=== PATIENT | male | born 1955 | race Caucasian/White ===

== ENCOUNTER 2018-08-24 15:01 | Observation (INO) | payer MEDICARE, BC ==
[~2018-08-24] VITALS: Ht 172.7 cm; Wt 65.0 kg
[~2018-08-24 15:01] MED LIST: ASPI-831 PO; ATOR20TA65 PO; CLON-379 PO; METO-448 PO; NITR0.4T39 SL
--- NOTE | 2018-08-24 16:03 | ERD ---
ER Documentation Chief Complaint Chief Complaint Chest pressure HPI The patient is a 73-year-old male, presenting to the ER because of substernal chest burning/pressure that began about 4 AM today, had similar symptoms 17 years ago prior to having a heart attack, denies chest pain with vomiting/radiation/exertion/diaphoresis, dyspnea, abdominal pain, vomiting, dizzy, diarrhea. He has been taking nitroglycerin with good response. He smokes a pack a day, drinks socially Past medical history: CAD, hypertension Past surgical history: Stent PCI ROS All systems reviewed and are negative except as per history of present illness. Medications Home Meds Active Scripts Clonidine Hcl* (Clonidine Hcl*) 0.1 Mg Tab, 0.1 MG PO Q4H PRN for sbp>160, #30 TAB Prov:REGBIANCARDILMA 01/24/16 Nitroglycerin* (Nitrostat*) 0.4 Mg Tab.subl, 1 TAB SL Q5M PRN for CHEST PAIN, #20 Prov:REGDILMA DEL CID 01/24/16 Metoprolol Tartrate* (Lopressor*) 25 Mg Tab, 25 MG PO Q12 for 30 Days, TAB Prov:REGIDORDILMA 01/24/16 Atorvastatin Calcium (Atorvastatin Calcium) 20 Mg Tablet, 60 MG PO HS for 30 Days, TAB Prov:REGDILMA DEL CID 01/24/16 Aspirin (Aspirin) 81 Mg Chew, 81 MG PO DAILY for 30 Days, TAB Prov:REGBIANCARDILMA 01/24/16 Allergies Allergies: Coded Allergies: No Known Allergy (Unverified , 01/18/14) PMhx/Soc History of Surgery: No Anesthesia Reaction: No Hx Neurological Disorder: No Hx Respiratory Disorders: No Hx Cardiac Disorders: Yes (stent x1) Hx Psychiatric Problems: No Hx Miscellaneous Medical Probl: No Hx Alcohol Use: No (OCASSIONAL ETOH DRINKER) Hx Substance Use: No Hx Tobacco Use: Yes Physical Exam Vitals Vital Signs Date Temp Pulse Resp B/P (MAP) Pulse Ox O2 O2 Flow FiO2 Time Delivery Rate 08/24/18 67 15 174/93 99 Room Air 16:15 (120) 08/24/18 99.0 74 20 165/78 99 15:19 (107) Physical Exam Const: No acute distress. Head: Atraumatic. Eyes: Normal Conjunctiva. ENT: Normal External Ears, Nose and Mouth. Neck: Full range of motion. No meningismus. Resp: Clear to auscultation bilaterally. Cardio: Regular rate and rhythm. Abd: Soft, non distended, normal bowel sounds, non tender. Skin: No petechiae or rashes. Back: No midline or flank tenderness. Ext: No cyanosis, or edema. Neur: Awake and alert. No focal deficit Psych: Normal Mood and Affect. Result Diagram: 08/24/18 1615 08/24/18 1615 Results 24 hrs Laboratory Tests Test 08/24/18 16:15 White Blood Count 7.4 10^3/ul Red Blood Count 4.23 10^6/ul Hemoglobin 12.4 g/dl Hematocrit 37.6 % Mean Corpuscular Volume 88.9 fl Mean Corpuscular Hemoglobin 29.3 pg Mean Corpuscular Hemoglobin Concent 33.0 g/dl Red Cell Distribution Width 13.1 % Platelet Count 188 10^3/UL Mean Platelet Volume 10.6 fl Immature Granulocytes % 0.100 % Neutrophils % 56.0 % Lymphocytes % 35.0 % Monocytes % 7.0 % Eosinophils % 1.6 % Basophils % 0.3 % Nucleated Red Blood Cells % 0.0 /100WBC Immature Granulocytes # 0.010 10^3/ul Neutrophils # 4.1 10^3/ul Lymphocytes # 2.6 10^3/ul Monocytes # 0.5 10^3/ul Eosinophils # 0.1 10^3/ul Basophils # 0.0 10^3/ul Nucleated Red Blood Cells # 0.0 10^3/ul Sodium Level 140 mmol/L Potassium Level 4.3 mmol/L Chloride Level 108 mmol/L Carbon Dioxide Level 24 mmol/L Anion Gap 8 Blood Urea Nitrogen 26 mg/dl Creatinine 1.30 mg/dl Est Glomerular Filtrat Rate mL/min 56 mL/min Glucose Level 79 mg/dl Calcium Level 9.4 mg/dl Troponin I < 0.012 ng/ml Current Medications Medications Dose Sig/Diana Start Time Status Last (Trade) Ordered Route PRN Stop Time Admin Dose Reason Admin Aspirin 324 mg ONCE ONCE 08/24/18 DC 08/24/18 (Aspirin) PO 16:30 08/24/18 16:36 16:31 1 inch ONCE ONCE 08/24/18 DC 08/24/18 Nitroglycerin TD 16:30 08/24/18 16:35 16:31 (Nitroglyceri n 2% Oint) Procedures/MDM [place] [id number] Radiology Main Line: [phone] DIAGNOSTIC IMAGING REPORT Patient: APRIL GALVAN : 1955 Age: 63 Sex: M MR #: [id number] DOS: 08/24/18 1603 Ordering MD: CASSANDRA SARMIENTO MD Location: E/R Room/Bed: PROCEDURE: XR Chest. CLINICAL INDICATION: chest pain TECHNIQUE: Single frontal view of the chest was obtained COMPARISON: CR CHEST 01/23/2016 FINDINGS: The heart and mediastinum are within normal limits. There are multiple left upper lobe nodular opacities measuring up to 1 cm, unchanged since the prior study. The lungs are otherwise clear. There is no pleural effusion or pneumothorax. RPTAT: AA IMPRESSION: Unchanged multiple left upper lobe nodular opacities. Follow-up CT chest is recommended on a routine basis. No focal consolidation. .Jarod Hernandez MD, MD Date Time Electronically viewed and signed by .Jarod Hernandez MD, MD on 08/24/2018 17:03 .S/ CC: CASSANDRA SARMIENTO MD [phone] EKG: Read by emergency physician Rate/Rhythm: Normal Sinus Rhythm 778 beats/min QRS, ST, T-waves: No ST elevation, no T inversion, shortened AL interval, low voltage, lateral ST and T abnormality Impression: Abnormal EKG MEDICAL MAKING DECISION: The patient is a 73-year-old male with multiple cardiac risk factors, presenting with acute chest pain is concerning for acute ACS. He was treated with aspirin 324 mg p.o. and 1 inch of nitroglycerin ointment to the chest wall for acute chest pain with good response. The differential diagnoses considered include but are not limited to acute coronary syndrome, acute myocardial infarction, pericarditis, pulmonary embolism, aortic dissection, pneumonia, pleural effusion, pneumothorax, GERD, chest wall pain. Departure Diagnosis: Primary Impression: Chest pain Additional Impressions: Anemia Renal insufficiency Condition: Stable Comments I discussed the findings with the patient. I discussed the patient with the hosp italist Dr Charles at 5:15 PM. who was made aware of the lab, the treatment, the patient condition. The patient is admitted to Tel [facility] Disclaimer: Inadvertent spelling and grammatical errors are likely due to EHR/dictation software use and do not reflect on the overall quality of patient care. Also, please note that the electronic time recorded on this note does not necessarily reflect the actual time of the patient encounter. CASSANDRA SARMIENTO MD Aug 24, 2018 16:03
[2018-08-24] MEDS ORDERED: ASPIRIN 81 MG TAB PO ONE (16:30)
[2018-08-24] MEDS ORDERED: NITROGLYCERIN 2% 1 GM OINT PKT TD ONE (16:30)
[2018-08-24] MEDS ORDERED: ONDANSETRON 4 MG INJ IV PRN (18:00)
[2018-08-24] MEDS ORDERED: MAGNESIUM HYDROXIDE 30ML CUP PO PRN (18:00)
[2018-08-24] MEDS ORDERED: DOCUSATE SODIUM 100 MG CAP PO PRN (18:00)
[2018-08-24] MEDS ORDERED: NITROGLYCERIN (SL) 0.4 MG TAB SL PRN (18:00)
[2018-08-24] MEDS ORDERED: NACL 0.9% 3 ML SYG IV SCH (18:00)
[2018-08-24] MEDS ORDERED: morphine 2 MG INJ IV PRN (18:00)
[2018-08-24] MEDS ORDERED: HYDROCODONE/APAP (5/325) TAB PO PRN (18:00)
[2018-08-24] MEDS ORDERED: ACETAMINOPHEN 325 MG TAB PO PRN (18:00)
[2018-08-24] MEDS ORDERED: SOD CHLORIDE 0.9% 1,000 ML IV SCH (18:30)
[2018-08-24] MEDS ORDERED: hydrALAzine 20 MG INJ IV PRN (18:30)
[2018-08-24 18:41] VITALS: BP 170/88; PULSE 61; RESP 19
--- NOTE | 2018-08-24 19:02 | HP ---
Date/Time of Note Date/Time of Note DATE: 08/24/18 TIME: 18:47 Assessment/Plan VTE Prophylaxis SCD applied (from Nsg): Yes Pharmacological prophylaxis: LMWH Lines/Catheters IV Catheter Type (from Nrsg): Saline Lock Assessment/Plan Assessment/Plan 1. Acute atypical chest pain, rule out ACS - Cardiology consultation placed for further recommendations - Trop neg x1 and will trend - EKG negative for acute ST changes - nitro helped patient prior to arrival - continue Nitro, O2, morphine PRN - A1c and lipid panel ordered 2. h/o CAD - last PCI was 17 years ago - stress was 5-6 years ago - still smoking and ETOH abuse 3. Tobacco abuse - nicotine patch - cessation counseling provided 4. Lung nodules - stable. will need continued monitoring 5. DANNA - will hydrate and monitor for improvement - avoid nephrotoxic agents 6. Diet - Cardiac 7. Disposition -Admit to Telemetry for ACS rule out Result Diagram: 08/24/18 1615 08/24/18 1615 Results 24hrs Laboratory Tests Test 08/24/18 16:15 White Blood Count 7.4 # Red Blood Count 4.23 L Hemoglobin 12.4 L Hematocrit 37.6 L Mean Corpuscular Volume 88.9 Mean Corpuscular Hemoglobin 29.3 Mean Corpuscular Hemoglobin Concent 33.0 Red Cell Distribution Width 13.1 Platelet Count 188 Mean Platelet Volume 10.6 H Immature Granulocytes % 0.100 Neutrophils % 56.0 Lymphocytes % 35.0 Monocytes % 7.0 Eosinophils % 1.6 Basophils % 0.3 Nucleated Red Blood Cells % 0.0 Immature Granulocytes # 0.010 Neutrophils # 4.1 Lymphocytes # 2.6 Monocytes # 0.5 Eosinophils # 0.1 Basophils # 0.0 Nucleated Red Blood Cells # 0.0 Sodium Level 140 Potassium Level 4.3 Chloride Level 108 Carbon Dioxide Level 24 Anion Gap 8 Blood Urea Nitrogen 26 H Creatinine 1.30 H Est Glomerular Filtrat Rate mL/min 56 L Glucose Level 79 Hemoglobin A1c 5.4 Calcium Level 9.4 Troponin I < 0.012 HPI/ROS Admit Date/Time Admit Date/Time Aug 24, 2018 at 17:14 Hx of Present Illness 63 yo M with PMH CAD s/p PCI 17 years ago, hyperlipidemia, tobacco abuse presented to ED with worsening chest pressure for the past 3 weeks. Patient described the pain as constant burning, nonradiating, denies any associated shortness of breath, nausea, or vomiting. He states he does not remember if the pain is similar to his previous PA but concerned it may be his heart. He follows with a [employer] and last stress test was about 5 years ago. He is still a current everyday smoker and drinks alcohol occasionally. Patient is also concerned about a "bump" on his right calf that started 3 weeks ago as well. He says he was check for a thrombus a few months ago. He states it started as a red bump but has improved in discomfort. Patient denies palpitations, dizziness, LOC, any urinary issues, constipation, diarrhea, or abdominal pain. ROS All 12 systems reviewed and pertinent positives as per HPI. All others negative. Constitutional: No chills, No nausea Eyes: No discharge ENT: No congestion Respiratory: No cough, No shortness of breath, No sputum, No wheezing Cardiovascular: chest pain; No edema, No lightheadedness, No palpitations Gastrointestinal: No pain, No constipation, No diarrhea, No nausea, No vomiting Genitourinary: no complaints Musculoskeletal: no complaints Skin: other (bump on right calf) Neurologic: No confusion, No focal-weakness, No syncope Endocrine: no complaints Lymphatic: no complaints Psychological: nl mood/affect Immunologic: no complaints PMH/Family/Social Past Medical History Medical History: coronary artery disease, high cholesterol Medications Current Medications Aspirin (Aspirin) 81 mg DAILY PO ; Start 08/25/18 at 09:00 Atorvastatin Calcium (Lipitor) 80 mg HS PO ; Start 08/24/18 at 21:00 Clonidine (Catapres) 0.1 mg Q4H PRN PO sbp>160; Start 08/24/18 at 18:00 Metoprolol Tartrate (Lopressor) 25 mg Q12 PO ; Start 08/24/18 at 21:00 Nitroglycerin (Nitroglycerin (Sl Tab) 0.4 Mg) 1 tab Q5M PRN SL CHEST PAIN; Start 08/24/18 at 18:00 IV Flush (NS 3 ml) 3 ml PER PROTOCOL IV ; Start 08/24/18 at 18:00 Ondansetron HCl (Zofran Inj) 4 mg Q6H PRN IV NAUSEA/VOMITING; Start 08/24/18 at 18:00 Acetaminophen (Tylenol Tab) 650 mg Q6H PRN PO .PAIN 1-3 OR TEMP; Start 08/24/18 at 18:00 Acetaminophen/ Hydrocodone Bitart ([place] (5/325)) 1 tab Q6H PRN PO .PAIN 4-6; Start 08/24/18 at 18:00 Morphine Sulfate (morphine) 2 mg Q4H PRN IV .PAIN 7-10; Start 08/24/18 at 18:00 Docusate Sodium (Colace) 100 mg Q12H PRN PO .CONSTIPATION; Start 08/24/18 at 18:00 Magnesium Hydroxide (Milk Of Mag) 30 ml DAILY PRN PO .CONSTIPATION; Start 08/24/18 at 18:00 Pantoprazole (Protonix Tab) 40 mg DAILY@06 PO ; Start 08/25/18 at 06:00 Nicotine (Nicoderm 21 Mg/ 24hr) 1 patch DAILY TRANSDERM ; Start 08/24/18 at 18:00 Sodium Chloride 1,000 ml @ 100 mls/hr Q10H IV ; Start 08/24/18 at 18:30; Stop 08/25/18 at 04:29 Hydralazine HCl (Apresoline) 10 mg Q4H PRN IV SBP >170; Start 08/24/18 at 18:30 Coded Allergies: No Known Allergy (Unverified , 01/18/14) Past Surgical History Past Surgical Hx: angioplasty Family History Significant Family History: no pertinent family hx Social History Alcohol Use: occasionally Smoking Status: Current every day smoker Drug Use: none Exam/Review of Systems Vital Signs Vitals Vital Signs Date Temp Pulse Resp B/P (MAP) Pulse Ox O2 O2 Flow FiO2 Time Delivery Rate 08/24/18 98.1 61 19 170/88 99 18:41 (115) 08/24/18 Room Air 18:06 Exam Exam General: Patient is laying in bed and answers questions appropriately HEENT: NC/AT. EOMI, pupils reactive to light Neck: Supple, nontender, midline chest: nontender Lungs: clear to auscultation bilaterally. no wheezing or rhonchi CVS: S1, S2, regular rate and rhythm, no obvious murmurs Gl: soft, non-tender to palpation, nondistended, bowel sounds heard. no rebound or guarding Neurological: Moves all extremities spontaneously Skin: No new skin lesions Additional Comments Home medications reviewed PROCEDURE: XR Chest. CLINICAL INDICATION: chest pain TECHNIQUE: Single frontal view of the chest was obtained COMPARISON: CR CHEST 01/23/2016 FINDINGS: The heart and mediastinum are within normal limits. There are multiple left upper lobe nodular opacities measuring up to 1 cm, unchanged since the prior study. The lungs are otherwise clear. There is no pleural effusion or pneumothorax. RPTAT: AA IMPRESSION: Unchanged multiple left upper lobe nodular opacities. Follow-up CT chest is recommended on a routine basis. No focal consolidation. .Jarod Hernandez MD, MD Date Time Electronically viewed and signed by .Jarod Hernandez MD, MD on 08/24/2018 17:03 DONTE BASS MD Aug 24, 2018 19:01
--- NOTE | 2018-08-24 19:19 | CONS ---
Assessment/Plan Assessment/Plan Hospital Course (Demo Recall) Chest pain rule out acute coronary syndrome Coronary artery disease History of GA 17 years ago History of PCI Hypertension Dyslipidemia Active smoker History of daily alcohol use Abnormal EKG Abnormal chest x-ray finding Recommendations: Continue with aspirin beta-ann and statin Serial cardiac enzymes will be checked We will give a dose of Lovenox now. Echocardiogram will be checked Lexiscan stress test to be done tomorrow morning if cardiac enzymes are negative and patient remained chest pain-free He has been strongly advised against smoking and drinking Pulmonary workup as per internal medicine Thank you for his referral. We will continue to follow along with you LINDSAY CALLAHAN MD [facility] Consultation Date/Type/Reason Admit Date/Time Aug 24, 2018 at 17:14 Date of Consultation: Aug 24, 2018 Type of Consult Cardiology Reason for Consultation CHEST PAIN Requesting Provider: DONTE BASS MD Date/Time of Note DATE: 08/24/18 TIME: 19:14 Hx of Present Illness Interventional cardiology consultation note Chief complaint: Chest pain Reason for consult: Chest pain History of present illness: Thank you for this referral. History was obtained from the chart from discussion with the staff and physicians as well as the patient himself. This is a pleasant 63-year-old French gentleman with history of coronary artery disease status post GA and PCI 17 years ago, hypertension, dyslipidemia, active smoker who came to emergency room with complaint of few weeks of on and off chest pain. Pain is anterior burning sensation it becomes severe at times. Lasted a few minutes and usually resolve after he takes nitroglycerin. Patient could not explain any exacerbating factors for it. He said that he does not walk much and he has leg pain when he walks. His pain got worse and more severe today and came to emergency room. Currently patient changes chest pain-free and his first troponin is negative Allergies: No known drug allergies Medications were reviewed as per medical reconciliation sheet Family history: He denies any known history of early coronary artery disease Social history: Patient actively smokes. Drinks 2 shots a day Past medical history: Coronary artery disease status post GA status post PCI 70 years ago, hypertension, dyslipidemia, smoker Review of system: Patient denies all others except for above-mentioned Past Medical History Home Meds Active Scripts Clonidine Hcl* (Clonidine Hcl*) 0.1 Mg Tab, 0.1 MG PO Q4H PRN for sbp>160, #30 TAB Prov:JONO DIXONNELL 01/24/16 Nitroglycerin* (Nitrostat*) 0.4 Mg Tab.subl, 1 TAB SL Q5M PRN for CHEST PAIN, #20 Prov:JONO DIXONNELL 01/24/16 Metoprolol Tartrate* (Lopressor*) 25 Mg Tab, 25 MG PO Q12 for 30 Days, TAB Prov:ALEMARIA EUGENIADILMA 01/24/16 Atorvastatin Calcium (Atorvastatin Calcium) 20 Mg Tablet, 60 MG PO HS for 30 Days, TAB Prov:DESTINYDILMA 01/24/16 Aspirin (Aspirin) 81 Mg Chew, 81 MG PO DAILY for 30 Days, TAB Prov:ALEDILMA DEL CID 01/24/16 Medications Current Medications Aspirin (Aspirin) 81 mg DAILY PO ; Start 08/25/18 at 09:00 Atorvastatin Calcium (Lipitor) 80 mg HS PO ; Start 08/24/18 at 21:00 Clonidine (Catapres) 0.1 mg Q4H PRN PO sbp>160; Start 08/24/18 at 18:00 Metoprolol Tartrate (Lopressor) 25 mg Q12 PO ; Start 08/24/18 at 21:00 Nitroglycerin (Nitroglycerin (Sl Tab) 0.4 Mg) 1 tab Q5M PRN SL CHEST PAIN; Start 08/24/18 at 18:00 IV Flush (NS 3 ml) 3 ml PER PROTOCOL IV ; Start 08/24/18 at 18:00 Ondansetron HCl (Zofran Inj) 4 mg Q6H PRN IV NAUSEA/VOMITING; Start 08/24/18 at 18:00 Acetaminophen (Tylenol Tab) 650 mg Q6H PRN PO .PAIN 1-3 OR TEMP; Start 08/24/18 at 18:00 Acetaminophen/ Hydrocodone Bitart ([place] (5/325)) 1 tab Q6H PRN PO .PAIN 4-6; Start 08/24/18 at 18:00 Morphine Sulfate (morphine) 2 mg Q4H PRN IV .PAIN 7-10; Start 08/24/18 at 18:00 Docusate Sodium (Colace) 100 mg Q12H PRN PO .CONSTIPATION; Start 08/24/18 at 18:00 Magnesium Hydroxide (Milk Of Mag) 30 ml DAILY PRN PO .CONSTIPATION; Start at 18:00 Pantoprazole (Protonix Tab) 40 mg DAILY@06 PO ; Start 08/25/18 at 06:00 Nicotine (Nicoderm 21 Mg/ 24hr) 1 patch DAILY TRANSDERM ; Start 08/24/18 at 18:00 Sodium Chloride 1,000 ml @ 100 mls/hr Q10H IV ; Start 08/24/18 at 18:30; Stop 08/25/18 at 04:29 Hydralazine HCl (Apresoline) 10 mg Q4H PRN IV SBP >170; Start 08/24/18 at 18:30 Allergies: Coded Allergies: No Known Allergy (Unverified , 01/18/14) Past Surgical History Past Surgical Hx: angioplasty Social History Alcohol Use: occasionally Smoking Status: Current every day smoker Drug Use: none Exam/Review of Systems Vital Signs Vitals Vital Signs Date Temp Pulse Resp B/P (MAP) Pulse Ox O2 O2 Flow FiO2 Time Delivery Rate 08/24/18 98.1 61 19 170/88 99 18:41 (115) 08/24/18 Room Air 18:06 Exam Exam General: no acute distress HEENT: NC/AT. pupils are equal. round. NECK: NO JVD. no stridor. CV: RRR. systolic murmur; no gallop or rubs. PULM: no wheezing or rhonchi. GI: SOFT, NT, ND, no rebound or guarding Extremity: trace B/L LE edema. no clubbing. neuro: awake and alert, OX3. Psych: calm and pleasant rectal: deferred : normal EKG was personally reviewed showed normal sinus rhythm. T wave abnormality consistent with possible lateral ischemia Chest x-ray shows: Unchanged multiple left upper lobe nodular opacities. Follow-up CT chest is recommended on a routine basis. No focal consolidation. Labs Result Diagram: 08/24/18 1615 08/24/18 1615 Results 24hrs Laboratory Tests Test 08/24/18 16:15 White Blood Count 7.4 # Red Blood Count 4.23 L Hemoglobin 12.4 L Hematocrit 37.6 L Mean Corpuscular Volume 88.9 Mean Corpuscular Hemoglobin 29.3 Mean Corpuscular Hemoglobin Concent 33.0 Red Cell Distribution Width 13.1 Platelet Count 188 Mean Platelet Volume 10.6 H Immature Granulocytes % 0.100 Neutrophils % 56.0 Lymphocytes % 35.0 Monocytes % 7.0 Eosinophils % 1.6 Basophils % 0.3 Nucleated Red Blood Cells % 0.0 Immature Granulocytes # 0.010 Neutrophils # 4.1 Lymphocytes # 2.6 Monocytes # 0.5 Eosinophils # 0.1 Basophils # 0.0 Nucleated Red Blood Cells # 0.0 Sodium Level 140 Potassium Level 4.3 Chloride Level 108 Carbon Dioxide Level 24 Anion Gap 8 Blood Urea Nitrogen 26 H Creatinine 1.30 H Est Glomerular Filtrat Rate mL/min 56 L Glucose Level 79 Hemoglobin A1c 5.4 Calcium Level 9.4 Troponin I < 0.012 Medications Medications Current Medications Aspirin (Aspirin) 81 mg DAILY PO ; Start 08/25/18 at 09:00 Atorvastatin Calcium (Lipitor) 80 mg HS PO ; Start 08/24/18 at 21:00 Clonidine (Catapres) 0.1 mg Q4H PRN PO sbp>160; Start 08/24/18 at 18:00 Metoprolol Tartrate (Lopressor) 25 mg Q12 PO ; Start 08/24/18 at 21:00 Nitroglycerin (Nitroglycerin (Sl Tab) 0.4 Mg) 1 tab Q5M PRN SL CHEST PAIN; Start 08/24/18 at 18:00 IV Flush (NS 3 ml) 3 ml PER PROTOCOL IV ; Start 08/24/18 at 18:00 Ondansetron HCl (Zofran Inj) 4 mg Q6H PRN IV NAUSEA/VOMITING; Start 08/24/18 at 18:00 Acetaminophen (Tylenol Tab) 650 mg Q6H PRN PO .PAIN 1-3 OR TEMP; Start 08/24/18 at 18:00 Acetaminophen/ Hydrocodone Bitart ([place] (5/325)) 1 tab Q6H PRN PO .PAIN 4-6; Start 08/24/18 at 18:00 Morphine Sulfate (morphine) 2 mg Q4H PRN IV .PAIN 7-10; Start 08/24/18 at 18:00 Docusate Sodium (Colace) 100 mg Q12H PRN PO .CONSTIPATION; Start 08/24/18 at 18:00 Magnesium Hydroxide (Milk Of Mag) 30 ml DAILY PRN PO .CONSTIPATION; Start 08/24/18 at 18:00 Pantoprazole (Protonix Tab) 40 mg DAILY@06 PO ; Start 08/25/18 at 06:00 Nicotine (Nicoderm 21 Mg/ 24hr) 1 patch DAILY TRANSDERM ; Start 08/24/18 at 18:00 Sodium Chloride 1,000 ml @ 100 mls/hr Q10H IV ; Start 08/24/18 at 18:30; Stop 08/25/18 at 04:29 Hydralazine HCl (Apresoline) 10 mg Q4H PRN IV SBP >170; Start 08/24/18 at 18:30 LINDSAY CALLAHAN MD Aug 24, 2018 19:19
[2018-08-24] MEDS: ENOXAPARIN 80 MG/0.8 ML SYG SC SCH (20:28)
[2018-08-24 20:30] VITALS: PULSE 68
[2018-08-24] MEDS: METOPROLOL 25 MG TAB PO SCH (20:37)
[2018-08-24] MEDS ORDERED: ATORVASTATIN 80 MG TAB PO SCH (21:00)
[2018-08-24] MEDS: NICOTINE (21 MG/24 HR) PATCH TRANSDERM SCH (22:49)
[2018-08-25] VITALS (7 sets, daily range): BP systolic 162–179; BP diastolic 88–90; PULSE 58–73; RESP 19; Ht 172.7 cm; Wt 65.0 kg
[2018-08-25] MEDS ORDERED: PANTOPRAZOLE (EC) 40 MG TAB PO SCH (06:00)
[2018-08-25] MEDS ORDERED: ASPIRIN 81 MG TAB PO SCH (09:00)
[2018-08-25] MEDS ORDERED: REGADENOSON 0.4 MG/5 ML SYG ONE (10:25)
--- NOTE | 2018-08-25 11:48 | CONS ---
Consult Date/Type/Reason Admit Date/Time Aug 24, 2018 at 17:14 Initial Consult Date 08/24/18 Type of Consultation: cv Requesting Provider: DONTE BASS MD Date/Time of Note DATE: 08/25/18 TIME: 11:46 Subjective Cardiology follow-up progress note Subjective: Case discussed with the staff. Telemetry was reviewed. Patient remains in normal sinus rhythm now. Patient denies any chest pain or pressure to me now. His blood pressure has been elevated though. No bleeding is reported. Objective: General: no acute distress HEENT: NC/AT. pupils are equal. round. NECK: NO JVD. no stridor. CV: RRR. systolic murmur; no gallop or rubs. PULM: no wheezing or rhonchi. GI: SOFT, NT, ND, no rebound or guarding Extremity: trace B/L LE edema. no clubbing. neuro: awake and alert, OX3. Psych: calm and pleasant rectal: deferred : normal Objective Vitals Vital Signs Date Temp Pulse Resp B/P (MAP) Pulse Ox O2 O2 Flow FiO2 Time Delivery Rate 08/25/18 63 08:33 08/25/18 98.7 19 162/90 97 07:33 (114) 08/24/18 Room Air 18:06 Intake and Output 08/24/18 08/24/18 08/25/18 1515:00 23:00 07:00 IntakeIntake Total 650 ml OutputOutput Total 600 ml BalanceBalance 50 ml Results/Medications Result Diagram: 08/25/18 0549 08/25/18 0549 Results 24 hrs Laboratory Tests Test 08/24/18 16:15 08/24/18 21:59 08/25/18 05:49 White Blood Count 7.4 # 7.7 Red Blood Count 4.23 L 3.84 L Hemoglobin 12.4 L 11.4 L Hematocrit 37.6 L 34.4 L Mean Corpuscular Volume 88.9 89.6 Mean Corpuscular Hemoglobin 29.3 29.7 Mean Corpuscular Hemoglobin Concent 33.0 33.1 Red Cell Distribution Width 13.1 13.2 Platelet Count 188 171 Mean Platelet Volume 10.6 H 11.6 H Immature Granulocytes % 0.100 0.400 Neutrophils % 56.0 51.6 Lymphocytes % 35.0 37.6 Monocytes % 7.0 7.9 Eosinophils % 1.6 2.1 Basophils % 0.3 0.4 Nucleated Red Blood Cells % 0.0 0.0 Immature Granulocytes # 0.010 0.030 Neutrophils # 4.1 4.0 Lymphocytes # 2.6 2.9 Monocytes # 0.5 0.6 Eosinophils # 0.1 0.2 Basophils # 0.0 0.0 Nucleated Red Blood Cells # 0.0 0.0 Sodium Level 140 140 Potassium Level 4.3 4.4 Chloride Level 108 109 Carbon Dioxide Level 24 24 Anion Gap 8 7 Blood Urea Nitrogen 26 H 24 H Creatinine 1.30 H 1.33 H Est Glomerular Filtrat Rate mL/min 56 L 54 L Glucose Level 79 89 Hemoglobin A1c 5.4 Calcium Level 9.4 9.0 Troponin I < 0.012 < 0.012 < 0.012 Creatine Kinase 200 151 Creatine Kinase Index 1.2 1.1 Creatinine Kinase MB (Mass) 2.33 1.67 Magnesium Level 2.0 Triglycerides Level 496 H Cholesterol Level 188 LDL Cholesterol, Calculated 57 HDL Cholesterol 32 Cholesterol/HDL Ratio 5.8 Home Meds Active Scripts Clonidine Hcl* (Clonidine Hcl*) 0.1 Mg Tab, 0.1 MG PO Q4H PRN for sbp>160, #30 TAB Prov:DILMA DIXON 01/24/16 Nitroglycerin* (Nitrostat*) 0.4 Mg Tab.subl, 1 TAB SL Q5M PRN for CHEST PAIN, #20 Prov:DILMA DIXON 01/24/16 Metoprolol Tartrate* (Lopressor*) 25 Mg Tab, 25 MG PO Q12 for 30 Days, TAB Prov:DILMA DIXON 01/24/16 Atorvastatin Calcium (Atorvastatin Calcium) 20 Mg Tablet, 60 MG PO HS for 30 Days, TAB Prov:DILMA DIXON 01/24/16 Aspirin (Aspirin) 81 Mg Chew, 81 MG PO DAILY for 30 Days, TAB Prov:DILMA DIXON 01/24/16 Medications Current Medications Aspirin (Aspirin) 81 mg DAILY PO ; Start 08/25/18 at 09:00 Atorvastatin Calcium (Lipitor) 80 mg HS PO Last administered on 08/24/18at 20:36; Admin Dose 80 MG; Start 08/24/18 at 21:00 Clonidine (Catapres) 0.1 mg Q4H PRN PO sbp>160; Start 08/24/18 at 18:00 Metoprolol Tartrate (Lopressor) 25 mg Q12 PO Last administered on 08/24/18at 20:37; Admin Dose 25 MG; Start 08/24/18 at 21:00 Nitroglycerin (Nitroglycerin (Sl Tab) 0.4 Mg) 1 tab Q5M PRN SL CHEST PAIN; Start 08/24/18 at 18:00 IV Flush (NS 3 ml) 3 ml PER PROTOCOL IV ; Start 08/24/18 at 18:00 Ondansetron HCl (Zofran Inj) 4 mg Q6H PRN IV NAUSEA/VOMITING; Start 08/24/18 at 18:00 Acetaminophen (Tylenol Tab) 650 mg Q6H PRN PO .PAIN 1-3 OR TEMP Last administered on 08/25/18at 01:13; Admin Dose 650 MG; Start 08/24/18 at 18:00 Acetaminophen/ Hydrocodone Bitart ([place] (5/325)) 1 tab Q6H PRN PO .PAIN 4-6; Start 08/24/18 at 18:00 Morphine Sulfate (morphine) 2 mg Q4H PRN IV .PAIN 7-10; Start 08/24/18 at 18:00 Docusate Sodium (Colace) 100 mg Q12H PRN PO .CONSTIPATION; Start 08/24/18 at 18:00 Magnesium Hydroxide (Milk Of Mag) 30 ml DAILY PRN PO .CONSTIPATION; Start 08/24/18 at 18:00 Pantoprazole (Protonix Tab) 40 mg DAILY@06 PO Last administered on 08/25/18at 06:16; Admin Dose 40 MG; Start 08/25/18 at 06:00 Nicotine (Nicoderm 21 Mg/ 24hr) 1 patch DAILY TRANSDERM Last administered on 08/24/18at 22:49; Admin Dose 1 PATCH; Start 08/24/18 at 18:00 Hydralazine HCl (Apresoline) 10 mg Q4H PRN IV SBP >170; Start 08/24/18 at 18:30 Enoxaparin Sodium (Lovenox) 65 mg Q12 SC Last administered on 08/24/18at 20:28; Admin Dose 65 MG; Start 08/24/18 at 20:00 Influenza Virus Vaccine Quadrival (Fluzone) 0.5 ml ONCE ONCE IM* ; Start 08/26/18 at 10:00; Stop 08/26/18 at 10:01 Assessment/Plan Hospital Course (Demo Recall) Chest pain rule out acute coronary syndrome Coronary artery disease History of [place] 17 years ago History of PCI Hypertension Dyslipidemia Active smoker History of daily alcohol use Abnormal EKG Abnormal chest x-ray finding Recommendations: Continue with aspirin beta-ann and statin Serial cardiac enzymes been negative Echocardiogram will be checked Lexiscan stress test done today. Awaiting results He has been strongly advised against smoking and drinking Pulmonary workup as per internal medicine I will add losartan to his regimen for his blood pressure control Thank you for his referral. We will continue to follow along with you LINDSAY CALLAHAN MD [facility] LINDSAY CALLAHAN MD Aug 25, 2018 11:48
[2018-08-25] MEDS ORDERED: LOSARTAN 50 MG TAB PO SCH (12:00)
--- NOTE | 2018-08-25 12:26 | RADRPT ---
Echocardiogram Report [id number] : 1955 (63y 6m)Study Date: 08/25/2018 11:02:03 AM Gender: Andrewcession #: [id number] Tech: UT Location: Ref.Physician: DONTE BASS Height(Cm): BSA: Weight(Kg): Quality: AdequateAccount #: Procedures: Echocardiographic Report: Transthoracic echocardiogram with complete 2D, M-Mode, and doppler examination. Indications: Chest Pain, and Coronary Artery Disease. Measurements: 2D/M Mode Doppler Measurement Value Normal Range Measurement Value Normal Range LVIDd 2D 4.1 [ 4.2 - 5.8 ] cm AV Peak Trevor 1.1 [ 100.0 - 170.0 ] cm/sec LVIDs 2D 2.7 [ 2.5 - 4.0 ] cm AV Peak PG 5.0 [ 2.0 - 9.0 ] mmHg LVPWd 2D 1.0 [ 0.6 - 1.0 ] cm LVOT Peak Trevor 0.8 [ 70.0 - 110.0 ] cm/sec IVSd 2D 0.9 [ 0.6 - 1.0 ] cm LVOT Peak PG 3.0 [ 2.0 - 6.0 ] mmHg AoR Diam 2D 2.7 [ 2.6 - 3.4 ] cm MV E Peak Trevor 0.6 [ 60.0 - 130.0 ] cm/sec EDV 2D 73.8 [ 62.0 - 150.0 ] ml MV A Peak Trevor 0.8 [ 100.0 - 120.0 ] cm/sec ESV 2D 27.8 [ 21.0 - 61.0 ] ml MV E/A 0.7 [ 0.8 - 1.5 ] ratio EF 2D 62.3 [ 52.0 - 72.0 ] percent MV Decel Time 232 [ 104 - 258 ] msec LA Dimen 2D 3.0 [ 3.0 - 4.0 ] cm Lat E` Trevor 0.1 [ 10.0 - 15.0 ] cm/sec Lateral E/E` 5.4 [ 1.0 - 2.0 ] ratio MV E/A 0.7 [ 0.8 - 1.5 ] ratio TR Peak Trevor 2.9 [ 100.0 - 280.0 ] cm/sec TR Peak PG 34.0 mmHg RVSP 44.0 [ 10.0 - 36.0 ] mmHg RA Pressure 10.0 mmHg Findings: Left Ventricle: Normal left ventricular systolic function. Normal left ventricular cavity size. Normal left ventricular wall thickness. Ejection fraction is visually estimated at 50 %. Tissue Doppler/Mitral Doppler indices are consistent with impaired relaxation (Stage I diastolic dysfunction). These segments of the LV are hypokinetic inferior base segment and inferior mid segment. Right Ventricle: Normal right ventricular size. Normal right ventricular systolic function. Left Atrium: The left atrium is normal in size. Right Atrium: The right atrium is normal in size. Mitral Valve: Normal appearance and function of the mitral valve with trace physiologic regurgitation. Aortic Valve: Normal appearance of the aortic valve. No significant aortic stenosis or insufficiency. Tricuspid Valve: Normal appearance of the tricuspid valve. Estimated peak PA systolic pressure 44 mmHg. There is mild tricuspid regurgitation. Pulmonic Valve: Normal pulmonic valve appearance. Pericardium: Trivial pericardial effusion. Aorta: Normal aortic root. IVC: Normal size and normal respiratory collapse consistent with normal right atrial pressure. Conclusions: Normal left ventricular systolic function. Normal left ventricular cavity size. Normal left ventricular wall thickness. Ejection fraction is visually estimated at 50 %. Tissue Doppler/Mitral Doppler indices are consistent with impaired relaxation (Stage I diastolic dysfunction). These segments of the LV are hypokinetic inferior base segment and inferior mid segment. Normal appearance of the aortic valve. No significant aortic stenosis or insufficiency. Normal appearance of the tricuspid valve. Estimated peak PA systolic pressure 44 mmHg. There is mild tricuspid regurgitation. Normal appearance and function of the mitral valve with trace physiologic regurgitation. Electronically Signed By: Hermilo Powell 2018-08-25 12:26:43 [facility]
[2018-08-25] MEDS: NICOTINE (21 MG/24 HR) PATCH TRANSDERM SCH (12:48)
[2018-08-25] MEDS: METOPROLOL 25 MG TAB PO SCH (12:49)
[2018-08-25] MEDS: ENOXAPARIN 80 MG/0.8 ML SYG SC SCH (12:52)
--- NOTE | 2018-08-25 13:18 | PDOCDIS ---
Discharge Instructions CONDITION [id number] Patient Condition: [id number] Stable HOME CARE INSTRUCTIONS: [id number] Diet Instructions: Track2u Low Fat /Cholesterol FOLLOW UP/APPOINTMENTS Follow-up Plan Follow-up with Dr. Powell in his clinic in 1-2 weeks [address] [facility] [address] [place] [id number] Office Follow up with primary care physician in 1 week-you are started on a new medication called losartan and you need to check your creatinine level in 1 week. NIMA BERG NP Aug 25, 2018 13:18
[2018-08-25] MEDS ORDERED: OMEG1CAP17 PO (13:20)
[2018-08-25] MEDS ORDERED: ATOR-2 PO (13:20)
[2018-08-25] MEDS ORDERED: LOSA50TA2 PO (13:20)
--- NOTE | 2018-08-25 13:31 | DS ---
Date/Time of Note Date/Time of Note DATE: 08/25/18 TIME: 13:29 Discharge Summary Admission/Discharge Info Admit Date/Time Aug 24, 2018 at 17:14 Discharge Date/Time Discharge Diagnosis Nonobstructive coronary artery disease Hypertension Dyslipidemia Tobacco/alcohol use Patient Condition: Stable Consults , cardiology Procedures 10/2018. Nuclear medicine myocardial perfusion scan: IMPRESSION: 1. 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 2. There is no evidence for reversible ischemia. 3. Lateral wall hypokinesis with low normal ejection fraction of 53%. Hospital Course 63-year-old male with a history of CAD/PCI, hypertension, dyslipidemia, tobacco use, alcohol use, admitted with chest pain. Patient underwent Lexiscan stress test, showed not significant old infarct along the lateral/inferior lateral wall. There was no evidence of reversible ischemia. Ejection fraction 53%. Patient was continued on medical management. He was continued on aspirin, beta-blockers and statin. Patient had mild acute kidney injury. Cardiology recommended starting low-dose losartan. Patient needs renal function to be monitored in a week. Patient also had moderate triglyceride anemia for which fish oil supplementation along with statin regimen was recommended. As per cardiology, no further inpatient cardiac workup indicated and patient is stable for outpatient follow-up. Patient did not have any further chest pain, troponin negative, EKG with no acute ST or T wave changes. Patient is very eager to be discharged home as well. Patient was counseled on smoking cessation and alcohol cessation. Approximately 60 minutes was spent on coordinating the discharge on this patient. Patient was seen in collaboration with [facility] Active Scripts [place]-3 Fatty Acids/Fish Oil (Fish Oil 1,000 mg Softgel) 1 Each Capsule, 1 EACH PO BID, #60 CAP Prov:BERG,NIMA V. DECK SCALER 08/25/18 Losartan Potassium* (Cozaar*) 50 Mg Tablet, 50 MG PO DAILY, #30 TAB Prov:BERG,NIMA V. DECK SCALER 08/25/18 Atorvastatin* (Atorvastatin*) 80 Mg Tablet, 80 MG PO HS, #30 TAB Prov:BERG,NIMA V. DECK SCALER 08/25/18 Clonidine Hcl* (Clonidine Hcl*) 0.1 Mg Tab, 0.1 MG PO Q4H PRN for sbp>160, #30 TAB Prov:DILMA DIXON 01/24/16 Nitroglycerin* (Nitrostat*) 0.4 Mg Tab.subl, 1 TAB SL Q5M PRN for CHEST PAIN, #20 Prov:DILMA DIXON 01/24/16 Metoprolol Tartrate* (Lopressor*) 25 Mg Tab, 25 MG PO Q12 for 30 Days, TAB Prov:DILMA DIXON 01/24/16 Atorvastatin Calcium (Atorvastatin Calcium) 20 Mg Tablet, 60 MG PO HS for 30 Days, TAB Prov:DILMA DIXON 01/24/16 Aspirin (Aspirin) 81 Mg Chew, 81 MG PO DAILY for 30 Days, TAB Prov:REGIDODILMA Zhang 01/24/16 Follow-up Plan Follow-up with Dr. Powell in his clinic in 1-2 weeks. [id number] [address] [place] [address] Office Follow up with primary care physician in 1 week Primary Care Provider Not On Staff Doctor Pending Labs Laboratory Tests Test 08/24/18 16:15 08/24/18 21:59 08/25/18 05:49 White Blood Count 7.4 7.7 10^3/ul (4.8-10.8) 10^3/ul (4.8-10.8) Red Blood Count 4.23 3.84 10^6/ul (4.70-6.10) 10^6/ul (4.70-6.10 ) Hemoglobin 12.4 11.4 g/dl (14.0-18.0) g/dl (14.0-18.0) Hematocrit 37.6 % (42.0-52.0) 34.4 % (42.0-52.0) Mean Corpuscular 88.9 89.6 Volume fl (82.0-101.0) fl (82.0-101.0) Mean Corpuscular 29.3 pg (29.0-33.0) 29.7 Hemoglobin pg (29.0-33.0) Mean Corpuscular 33.0 33.1 Hemoglobin Concent g/dl (32.0-37.0) g/dl (32.0-37.0) Red Cell 13.1 % (11.5-14.5) 13.2 % (11.5-14.5) Distribution Width Platelet Count 188 171 10^3/UL (140-415) 10^3/UL (140-415) Mean Platelet 10.6 fl (7.4-10.4) 11.6 fl (7.4-10.4) Volume Immature 0.100 0.400 Granulocytes % % (0.001-0.429) % (0.001-0.429) Neutrophils % 56.0 % (39.0-77.0) 51.6 % (39.0-77.0) Lymphocytes % 35.0 % (15.0-51.0) 37.6 % (15.0-51.0) Monocytes % 7.0 % (0.0-11.0) 7.9 % (0.0-11.0) Eosinophils % 1.6 % (0.0-7.0) 2.1 % (0.0-7.0) Basophils % 0.3 % (0.0-2.0) 0.4 % (0.0-2.0) Nucleated Red Blood 0.0 0.0 Cells % /100WBC (0.0-0.0) /100WBC (0.0-0.0) Immature 0.010 0.030 Granulocytes # 10^3/ul (0.0-0.031) 10^3/ul (0.0-0.031 ) Neutrophils # 4.1 4.0 10^3/ul (1.6-7.5) 10^3/ul (1.6-7.5) Lymphocytes # 2.6 2.9 10^3/ul (0.8-2.9) 10^3/ul (0.8-2.9) Monocytes # 0.5 0.6 10^3/ul (0.3-0.9) 10^3/ul (0.3-0.9) Eosinophils # 0.1 0.2 10^3/ul (0.0-0.5) 10^3/ul (0.0-0.5) Basophils # 0.0 0.0 10^3/ul (0.0-0.1) 10^3/ul (0.0-0.1) Nucleated Red Blood 0.0 0.0 Cells # 10^3/ul (0.0-0.0) 10^3/ul (0.0-0.0) Sodium Level 140 140 mmol/L (135-144) mmol/L (135-144) Potassium Level 4.3 4.4 mmol/L (3.5-5.1) mmol/L (3.5-5.1) Chloride Level 108 mmol/L (97-110) 109 mmol/L (97-110) Carbon Dioxide 24 mmol/L (21-31) 24 mmol/L (21-31) Level Anion Gap 8 (5-13) 7 (5-13) Blood Urea 26 mg/dl (7-20) 24 mg/dl (7-20) Nitrogen Creatinine 1.30 1.33 mg/dl (0.61-1.24) mg/dl (0.61-1.24) Est Glomerular 56 mL/min (>60) 54 mL/min (>60) Filtrat Rate mL/min Glucose Level 79 mg/dl (70-220) 89 mg/dl (70-220) Hemoglobin A1c 5.4 % (0-5.9) Calcium Level 9.4 9.0 mg/dl (8.4-10.2) mg/dl (8.4-10.2) Troponin I < 0.012 < 0.012 < 0.012 ng/ml (0.000-0.120) ng/ml (0.000-0.120 ng/ml (0.000-0.120 ) ) Creatine Kinase 200 IU/L (23-200) 151 IU/L (23-200) Creatine Kinase 1.2 1.1 Index Creatinine Kinase 2.33 1.67 MB (Mass) ng/ml (0.0-2.4) ng/ml (0.0-2.4) Magnesium Level 2.0 mg/dl (1.7-2.5) Triglycerides 496 mg/dl (0-149) Level Cholesterol Level 188 mg/dl (100-200) LDL Cholesterol, 57 mg/dl Calculated HDL Cholesterol 32 mg/dl (30-78) Cholesterol/HDL 5.8 RATIO Ratio NIMA BERG NP Aug 25, 2018 13:31
[2018-08-26] MEDS ORDERED: INFLUENZA VIRUS VACCINE 0.5 ML (DISPENSING) IM* ONE (10:00)
== END 2018-08-25 17:05 | disposition home or self-care (01) ==
LOC: E/R 15:01 → TEL 17:14
PROVIDERS: ADMIT Internal Medicine; ATTEND Internal Medicine
DX: I25.10 Atherosclerotic heart disease of native coronary artery without angina pectoris (principal); Z95.5 Presence of coronary angioplasty implant and graft; I10 Essential (primary) hypertension; E78.5 Hyperlipidemia, unspecified; Z72.0 Tobacco use; R91.8 Other nonspecific abnormal finding of lung field; N17.9 Acute kidney failure, unspecified; Z79.82 Long term (current) use of aspirin
CPT/HCPCS: 36415; 71045; 71250; 78452; 80048; 80061; 82550; 82553; 83036; 83735; 84484; 85025; 93005; 93017; 93306; 93971; 99285; A9500; A9505; G0378; J1650; J2785; J7030

== ENCOUNTER 2018-09-13 16:39 | Emergency (ER) | payer MEDICARE, BC ==
[~2018-09-13] VITALS: Wt 78.0 kg
[~2018-09-13 16:39] MED LIST changes: +ATOR-2 PO; -ATOR20TA65 PO; +LOSA50TA2 PO; +OMEG1CAP17 PO
[2018-09-13 16:43] VITALS: BP 160/82; PULSE 70; RESP 18
[2018-09-13] MEDS ORDERED: DIPHTH/TET/ACEL PERTUSS (ADULT) 0.5 ML VIAL IM* ONE (17:30)
[2018-09-13] MEDS ORDERED: HYDROCODONE/APAP (5/325) TAB PO ONE (17:30)
[2018-09-13] MEDS ORDERED: CEPH-443 PO (18:37)
[2018-09-13] MEDS ORDERED: HYDR-4011 PO (18:38)
--- NOTE | 2018-09-13 18:47 | ERD ---
ER Documentation Chief Complaint Chief Complaint left ring finger laceration about 1500 today. bleeding controlled. HPI 63-year-old male patient who is right-handed previous history of a [place], 15 years ago presents to ED complaining of a left-handed laceration as he was trying to cut bread earlier today. States that he accidentally cut the fingernail off of his left ring finger. Reports that the bleeding was controlled. States that he is not up-to-date with his tetanus vaccine. Patient reports that he has been taking metoprolol, aspirin. Denies any nausea, vomiting, diarrhea, neck stiffness, loss sensation, loss of range of motion, increased redness or swelling. ROS All systems reviewed and are negative except as per history of present illness. Medications Home Meds Active Scripts Hydrocodone/Acetaminophen ([place] 5-325 Tablet) 1 Each Tablet, 1 TAB PO QHS PRN for PAIN, #5 TAB Prov:UMAIR ESPINOSA PA-C 09/13/18 Cephalexin* (Keflex*) 500 Mg Capsule, 500 MG PO QID for 7 Days, CAP Prov:UMAIR ESPINOSA PA-C 09/13/18 [place]-3 Fatty Acids/Fish Oil (Fish Oil 1,000 mg Softgel) 1 Each Capsule, 1 EACH PO BID, #60 CAP Prov:BERG,NIMA V. PSYCHIATRIC SECRETARY 08/25/18 Losartan Potassium* (Cozaar*) 50 Mg Tablet, 50 MG PO DAILY, #30 TAB Prov:BERG,NIMA V. PSYCHIATRIC SECRETARY 08/25/18 Atorvastatin* (Atorvastatin*) 80 Mg Tablet, 80 MG PO HS, #30 TAB Prov:BERGNIMA V. PSYCHIATRIC SECRETARY 08/25/18 Clonidine Hcl* (Clonidine Hcl*) 0.1 Mg Tab, 0.1 MG PO Q4H PRN for sbp>160, #30 TAB Prov:REGDILMA DEL CID 01/24/16 Nitroglycerin* (Nitrostat*) 0.4 Mg Tab.subl, 1 TAB SL Q5M PRN for CHEST PAIN, #20 Prov:REGIDODILMA Zhang 01/24/16 Metoprolol Tartrate* (Lopressor*) 25 Mg Tab, 25 MG PO Q12 for 30 Days, TAB Prov:REGDILMA DEL CID 01/24/16 Aspirin (Aspirin) 81 Mg Chew, 81 MG PO DAILY for 30 Days, TAB Prov:REGIDOR,DILMA 01/24/16 Allergies Allergies: Coded Allergies: No Known Allergy (Unverified , 01/18/14) PMhx/Soc History of Surgery: Yes (cardiac stent x 17 years ago ) Anesthesia Reaction: No Hx Neurological Disorder: No Hx Respiratory Disorders: No Hx Cardiac Disorders: Yes (cardiac stent x 1, HTN, CAD) Hx Psychiatric Problems: No Hx Miscellaneous Medical Probl: No Hx Alcohol Use: No (two shots/day) Hx Substance Use: No Hx Tobacco Use: Yes (50 yr smoker, E cig user now) Smoking Status: Former smoker FmHx Family History: No diabetes, No coronary disease Physical Exam Vitals Vital Signs Date Temp Pulse Resp B/P (MAP) Pulse Ox O2 O2 Flow FiO2 Time Delivery Rate 09/13/18 98.0 70 18 160/82 99 16:43 (108) Physical Exam Const: [id number], well-nourished. In no acute distress. Head: Atraumatic, normocephalic Eyes: Normal Conjunctiva without injection. No purulent discharge. PERRL. EOMI ENT: Normal external ear. Ear canal without erythema. Tympanic membrane pearly hinson without effusion or bulging. Nasal canal clear with normal turbinates. Moist oropharynx without tonsillar exudates. Non-erythematous pharynx. Uvula midline. No drooling. No trismus. Neck: Full range of motion. No meningismus. No cervical lymphadenopathy. Resp: Clear to auscultation bilaterally. No wheezing, rhonchi, rales, or crackles. No accessory muscle use. No retractions. Cardio: Regular rate and rhythm. No murmurs, rubs or gallops. Abd: Soft, non tender, non distended. Normal bowel sounds. No palpable masses. No rebound tenderness. No guarding. Skin: No petechiae or rashes Back: No midline tenderness. No CVA tenderness. Ext: No cyanosis, or edema. Nail avulsion of left 4th finger. Full range of motion of DIP, PIP, MCP joints bilaterally. Neur: Awake and alert. Psych: Normal Mood and Affect Results 24 hrs Current Medications Medications Dose Sig/Diana Start Time Status Last (Trade) Ordered Route PRN Stop Time Admin Dose Reason Admin Diphtheria/ 0.5 ml ONCE ONCE 09/13/18 DC 09/13/18 Tetanus/Acell IM* 17:30 17:37 Pertussis 09/13/18 17:31 (Adacel) 1 tab ONCE ONCE 09/13/18 DC 09/13/18 Acetaminophen PO 17:30 17:37 / 09/13/18 17:31 Hydrocodone Bitart ([place] (5/325)) Procedures/MDM 63-year-old male patient comes to the ED complaining of a left finger laceration. Patient is afebrile and nontoxic-appearing. Tdap updated. Patient gave consent to perform laceration repair. Laceration Repair by me: Anesthesia: None Location: Left 4th Finger Tendon/Joint/Nerves: No injury Foreign body: None detected after copious irrigation and exploration Technique: Surgicel, Pressure Dressing and Elevation stopped bleeding Complexity: No subcutaneous sutures/mucosal repair/edge excision Post Closure Length: Complete Nail Avulsion Patient's bleeding was easily controlled in the department and there is no indication of anemia. Patient is neurovascularly intact. No evidence of compartment syndrome, neurologic injury, vascular injury, open joint, tendon laceration, or foreign body. Patient is appropriate for outpatient follow up. 48 hour wound check. Keflex was prescribed to patient for infection prevention. Instructed patient to return to the ED sooner for any worsening symptoms. Follow up with primary care physician in 1-2 days. Patient's questions were answered. Patient understood and agreed with discharge plan. Departure Diagnosis: Primary Impression: Avulsion of fingernail of left hand Condition: Stable Patient Instructions: Nail Avulsion, Complete Referrals: [facility] YOU HAVE RECEIVED A MEDICAL SCREENING EXAM AND THE RESULTS INDICATE THAT YOU DO NOT HAVE A CONDITION THAT REQUIRES URGENT TREATMENT IN THE EMERGENCY DEPARTMENT. FURTHER EVALUATION AND TREATMENT OF YOUR CONDITION CAN WAIT UNTIL YOU ARE SEEN IN YOUR DOCTORS OFFICE WITHIN THE NEXT 1-2 DAYS. IT IS YOUR RESPONSIBILITY TO MAKE AN APPOINTMENT FOR FOLOW-UP CARE. IF YOU HAVE A PRIMARY DOCTOR --you should call your primary doctor and schedule an appointment IF YOU DO NOT HAVE A PRIMARY DOCTOR YOU CAN CALL OUR PHYSICIAN REFERRAL HOTLINE AT IF YOU CAN NOT AFFORD TO SEE A PHYSICIAN YOU CAN CHOSE FROM THE FOLLOWING [facility] [address] [facility]. [facility] [place] [facility] [address] [facility] [facility] [address] [facility] [address] [facility]. [facility] [address] [facility]. [facility]. [address] [facility]. [facility] YOU HAVE RECEIVED A MEDICAL SCREENING EXAM AND THE RESULTS INDICATE THAT YOU DO NOT HAVE A CONDITION THAT REQUIRES URGENT TREATMENT IN THE EMERGENCY DEPARTMENT. FURTHER EVALUATION AND TREATMENT OF YOUR CONDITION CAN WAIT UNTIL YOU ARE SEEN IN YOUR DOCTORS OFFICE WITHIN THE NEXT 1-2 DAYS. IT IS YOUR RESPONSIBILITY TO MAKE AN APPOINTMENT FOR FOLOW-UP CARE. IF YOU HAVE A PRIMARY DOCTOR --you should call your primary doctor and schedule and appointment IF YOU DO NOT HAVE A PRIMARY DOCTOR YOU CAN CALL OUR PHYSICIAN REFERRAL HOTLINE AT . IF YOU CAN NOT AFFORD TO SEE A PHYSICIAN YOU CAN CHOSE FROM THE FOLLOWING [facility] INSTITUTIONS: [facility] [address] [place] [address] [facility] [address] [place], [place] [address] [place] [address] [address] [place] [address] [facility] URGENT CARE/SPECIALTIES [facility] Hours: 8:00 am - 5:00 pm Additional Instructions: Call your primary care doctor TOMORROW for an appointment during the next 2-3 days.See the doctor sooner or return here if your condition worsens before your appointment time. Follow up in 2 days in your clinic for wound check. UMAIR ESPINOSA PA-C Sep 13, 2018 18:47
== END 2018-09-13 19:15 | disposition home or self-care (01) ==
LOC: FTE 16:39
DX: S61.315A Laceration without foreign body of left ring finger with damage to nail, initial encounter (principal); I10 Essential (primary) hypertension; I25.10 Atherosclerotic heart disease of native coronary artery without angina pectoris; I25.2 Old myocardial infarction; W26.8XXA Contact with other sharp object(s), not elsewhere classified, initial encounter; Y92.9 Unspecified place or not applicable; Z23 Encounter for immunization; Z79.82 Long term (current) use of aspirin; Z98.61 Coronary angioplasty status; Z87.891 Personal history of nicotine dependence
CPT/HCPCS: 90471; 90715

== ENCOUNTER 2018-09-18 09:19 | Emergency (ER) | payer MEDICARE, BC ==
[~2018-09-18] VITALS: Wt 65.9 kg
[~2018-09-18 09:19] MED LIST changes: +CEPH-443 PO; +HYDR-4011 PO
[2018-09-18 09:21] VITALS: BP 161/102; PULSE 80; RESP 20; Wt 65.9 kg
[2018-09-18] MEDS ORDERED: MUPI22OI2 TOP (13:19)
--- NOTE | 2018-09-18 13:21 | ERD ---
ER Documentation Chief Complaint Chief Complaint lac to finger on Friday HPI 63-year-old male presents for follow-up for wound check. Patient here 5 days ago for a left fourth finger avulsion injury. Surgicel was applied and bleeding was controlled and patient was given instructions for wound care. Patient state s that he thinks the wound is healing well. Denies any pain currently. Denies fevers or chills. Patient was given antibiotics which he is currently taking. No other complaints. ROS All systems reviewed and are negative except as per history of present illness. Medications Home Meds Active Scripts Mupirocin* (Bactroban*) 2% -22 Gram Oint...g., 1 APPLIC TOP BID for finger avulsion injury for 5 Days, #1 TUB SITE OF APPLICATION: Prov:CASSANDRA BUTCHER DO 09/18/18 Hydrocodone/Acetaminophen ([place] 5-325 Tablet) 1 Each Tablet, 1 TAB PO QHS PRN for PAIN, #5 TAB Prov:UMAIR ESPINOSA PA-C 09/13/18 Cephalexin* (Keflex*) 500 Mg Capsule, 500 MG PO QID for 7 Days, CAP Prov:UMAIR ESPINOSA PA-C 09/13/18 [place]-3 Fatty Acids/Fish Oil (Fish Oil 1,000 mg Softgel) 1 Each Capsule, 1 EACH PO BID, #60 CAP Prov:BERGSEANA VAsha [employer] 08/25/18 Losartan Potassium* (Cozaar*) 50 Mg Tablet, 50 MG PO DAILY, #30 TAB Prov:BERGDELMYNIMA VAsha [employer] 08/25/18 Atorvastatin* (Atorvastatin*) 80 Mg Tablet, 80 MG PO HS, #30 TAB Prov:BERGSEANA Gallo [employer] 08/25/18 Clonidine Hcl* (Clonidine Hcl*) 0.1 Mg Tab, 0.1 MG PO Q4H PRN for sbp>160, #30 TAB Prov:REGIDORDILMA 01/24/16 Nitroglycerin* (Nitrostat*) 0.4 Mg Tab.subl, 1 TAB SL Q5M PRN for CHEST PAIN, #20 Prov:REGDILMA DEL CID 01/24/16 Metoprolol Tartrate* (Lopressor*) 25 Mg Tab, 25 MG PO Q12 for 30 Days, TAB Prov:REGDILMA DEL CID 01/24/16 Aspirin (Aspirin) 81 Mg Chew, 81 MG PO DAILY for 30 Days, TAB Prov:DILMA DIXON 01/24/16 Allergies Allergies: Coded Allergies: No Known Allergy (Unverified , 01/18/14) PMhx/Soc History of Surgery: Yes (cardiac stent x 17 years ago ) Anesthesia Reaction: No Hx Neurological Disorder: No Hx Respiratory Disorders: No Hx Cardiac Disorders: Yes (cardiac stent x 1, HTN, CAD) Hx Psychiatric Problems: No Hx Miscellaneous Medical Probl: No Hx Alcohol Use: No (two shots/day) Hx Substance Use: No Hx Tobacco Use: Yes (50 yr smoker, E cig user now) Physical Exam Vitals Vital Signs Date Temp Pulse Resp B/P (MAP) Pulse Ox O2 O2 Flow FiO2 Time Delivery Rate 09/18/18 97.6 80 20 161/102 99 09:21 (121) Physical Exam Const: No acute distress Resp: Clear to auscultation bilaterally Cardio: Regular rate and rhythm, no murmurs, cap refills less than 2 seconds in all fingers of the left hand Abd: Soft, non tender, non distended. Normal bowel sounds Skin: No petechiae or rashes Back: No midline or flank tenderness Ext: No cyanosis, or edema, patient is able to move his left fourth finger normally, the wound over the left fourth digit fingertip appears to be healing well, no erythema noted. No discharge or bleeding. Neur: Awake and alert, all fingers of left hand sensation intact Psych: Normal Mood and Affect Procedures/MDM Medical Decision Making: Patient presents for wound check of a left hand fourth digit fingertip avulsion injury. The wound appears to be healing well. Patient is neurovascularly intact. No signs of infection. Patient advised to continue with antibiotics which she was prescribed 5 days ago here in the ER. Prescription(s): Patient given prescription for Bactroban. Patient instructed regarding wound care. Patient advised to follow up with PCP in 1-2 days. Patient advised to return to ED for new or worsening symptoms. Patient stable on discharge from the ED. Disclaimer: Inadvertent spelling and grammatical errors are likely due to EHR/dictation software use and do not reflect on the overall quality of patient care. Also, please note that the electronic time recorded on this note does not necessarily reflect the actual time of the patient encounter. Departure Diagnosis: Primary Impression: Visit for wound check Condition: Fair Patient Instructions: Wound Care Referrals: COMM[facility]ITY CLIN[facility] YOU HAVE RECEIVED A MEDICAL SCREENING EXAM AND THE RESULTS INDICATE THAT YOU DO NOT HAVE A CONDITION THAT REQUIRES URGENT TREATMENT IN THE EMERGENCY DEPARTMENT. FURTHER EVALUATION AND TREATMENT OF YOUR CONDITION CAN WAIT UNTIL YOU ARE SEEN IN YOUR DOCTORS OFFICE WITHIN THE NEXT 1-2 DAYS. IT IS YOUR RESPONSIBILITY TO MAKE AN APPOINTMENT FOR FOLOW-UP CARE. IF YOU HAVE A PRIMARY DOCTOR --you should call your primary doctor and schedule an appointment IF YOU DO NOT HAVE A PRIMARY DOCTOR YOU CAN CALL OUR PHYSICIAN REFERRAL HOTLINE AT IF YOU CAN NOT AFFORD TO SEE A PHYSICIAN YOU CAN CHOSE FROM THE FOLLOWING [facility] [address] [facility]. [facility] [address] [facility] [address] [facility] [facility] [address] [facility]. [facility] [address] [facility]. [facility]. [address] Additional Instructions: Call your primary care doctor TOMORROW for an appointment during the next 1-2 days.See the doctor sooner or return here if your condition worsens before your appointment time. CASSANDRA BUTCHER DO Sep 18, 2018 13:21
== END 2018-09-18 13:29 | disposition home or self-care (01) ==
LOC: FTE 09:19
DX: Z48.01 Encounter for change or removal of surgical wound dressing (principal); I10 Essential (primary) hypertension; I25.10 Atherosclerotic heart disease of native coronary artery without angina pectoris; Z79.82 Long term (current) use of aspirin; Z87.891 Personal history of nicotine dependence; Z98.61 Coronary angioplasty status
CPT/HCPCS: 99281